=== PATIENT | male | born 1970 | race Caucasian/White ===

== ENCOUNTER 2016-05-16 12:23 | Emergency (ER) | payer SELFPAY ==
[~2016-05-16] VITALS: Ht 172.7 cm; Wt 74.3 kg
--- NOTE | 2016-05-16 12:40 | NUR ---
PT KEEPS SAYING THAT HE WOULD FEEL BETTER IF HE COULD GET IT POPPED
[2016-05-16] MEDS ORDERED: HYDROcodone/APAP 5 MG/325 MG (NORCO) TAB PO ONE (13:10)
[2016-05-16] MEDS ORDERED: CYCLOBENZAPRINE 10 MG (FLEXERIL) TAB PO ONE (13:10)
[2016-05-16 14:46] VITALS: BP 145/96
== END 2016-05-16 14:53 | disposition home or self-care (01) ==
LOC: ED 12:29
DX: S16.1XXA Strain of muscle, fascia and tendon at neck level, initial encounter (principal); W10.9XXA Fall (on) (from) unspecified stairs and steps, initial encounter; Y93.89 Activity, other specified; Y92.009 Unspecified place in unspecified non-institutional (private) residence as the place of occurrence of the external cause
CPT/HCPCS: 72125; 72128; 99283